=== PATIENT | female | born 1985 | race Asian ===

== ENCOUNTER → 2017-01-11 | Outpatient (CLI) | payer OTHER ==
[2017-01-11 12:53] LABS: HEMOGLOBIN 14.8 g/dL (11.7-16.4)
[2017-01-11 13:08] LABS: ASPARTATE AMINO TRANSFERASE 92 U/L (15-37); BLOOD UREA NITROGEN 9 mg/dL (7-18); C-REACTIVE PROTEIN, QUANT 0.15 mg/dL (0.02-0.49)
[2017-01-12 14:16] LABS: ANTIRIBOSOMAL P ABS <0.2 AI (0.0-0.9); CHROMATIN AB <0.2 AI (0.0-0.9); SJOGREN'S SS-A AB <0.2 AI (0.0-0.9)
== END | disposition home or self-care (01) ==
LOC: CFH 08:03
PROVIDERS: ATTEND Nurse Practitioner Family
DX: E04.9 Nontoxic goiter, unspecified (principal); K76.0 Fatty (change of) liver, not elsewhere classified; E78.1 Pure hyperglyceridemia; M54.16 Radiculopathy, lumbar region; R76.9 Abnormal immunological finding in serum, unspecified; R19.7 Diarrhea, unspecified; R79.89 Other specified abnormal findings of blood chemistry; R03.0 Elevated blood-pressure reading, without diagnosis of hypertension; R73.02 Impaired glucose tolerance (oral)
CPT/HCPCS: 36415; 80053; 80061; 81001; 82248; 82550; 83036; 83516; 84439; 84443; 84550; 85025; 85651; 85730; 86140; 86160; 86225; 86235; 87086

== ENCOUNTER → 2017-01-12 | Outpatient (CLI) | payer OTHER | END | disposition home or self-care (01) | LOC: CFH 09:38 | PROVIDERS: ATTEND Nurse Practitioner Family | DX: Z02.9 Encounter for administrative examinations, unspecified (principal) ==

== ENCOUNTER → 2017-02-22 | Outpatient (CLI) | payer OTHER ==
[2017-02-22 11:22] LABS: HIV 1&2 ANTIBODY SCREEN Nonreactive (Nonreactive); HIV-1 p24 ANTIGEN Nonreactive (Nonreactive)
== END | disposition home or self-care (01) ==
LOC: CFH 08:11
PROVIDERS: ATTEND Obstetrics & Gynecology
DX: Z20.2 Contact with and (suspected) exposure to infections with a predominantly sexual mode of transmission (principal); E28.2 Polycystic ovarian syndrome
CPT/HCPCS: 36415; 83525; 84702; 86592; 86696; 86703; 87899; G0435

== ENCOUNTER 2017-03-15 11:09 | Emergency (ER) | payer OTHER ==
[~2017-03-15] VITALS: Ht 162.6 cm; Wt 87.3 kg
[2017-03-15] MEDS ORDERED: SODIUM CHLORIDE FLUSH 10ML SYR IVF ONE (12:30)
[2017-03-15] MEDS ORDERED: ONDANSETRON 2MG/ML, 2ML IVPush ONE (12:30)
[2017-03-15] MEDS ORDERED: SODIUM CHLORIDE 0.9% 1,000ML IVBOLUS ONE ×2 (12:30→15:00)
[2017-03-15 12:49] LABS: BLOOD UREA NITROGEN 11 mg/dL (7-18)
[2017-03-15 12:56] LABS: ASPARTATE AMINO TRANSFERASE 54 U/L (15-37)
[2017-03-15] MEDS ORDERED: KETOROLAC 30 MG/1 ML ONE (14:26)
[2017-03-15] MEDS ORDERED: DIPHENHYDRAMINE 50 MG/ML, 1ML ONE (14:27)
[2017-03-15] MEDS ORDERED: METOCLOPRAMIDE 5 MG/ML, 2ML ONE (14:27)
[2017-03-15] MEDS ORDERED: KETOROLAC 30 MG/1 ML IVPush ONE (14:30)
[2017-03-15] MEDS ORDERED: DIPHENHYDRAMINE 50 MG/ML, 1ML IVPush ONE (14:30)
[2017-03-15] MEDS ORDERED: METOCLOPRAMIDE 5 MG/ML, 2ML IVPush ONE (14:30)
[2017-03-15 16:06] VITALS: BP 124/84
== END 2017-03-15 16:40 | disposition home or self-care (01) ==
LOC: ED 12:22
DX: K52.9 Noninfective gastroenteritis and colitis, unspecified (principal); G44.89 Other headache syndrome; R42 Dizziness and giddiness
CPT/HCPCS: 36415; 76700; 80053; 81003; 83690; 84703; 85025; 93005; 96361; 96374; 96375; 99285; J1200; J1885; J2765; J7030

== ENCOUNTER → 2017-04-25 | Outpatient (CLI) | payer OTHER ==
[2017-04-25 13:18] LABS: ASPARTATE AMINO TRANSFERASE 29 U/L (15-37); BLOOD UREA NITROGEN 12 mg/dL (7-18); TOTAL IRON BINDING CAPACITY 340 mcg/dL (250-450)
== END | disposition home or self-care (01) ==
LOC: CFH 09:11
PROVIDERS: ATTEND Nurse Practitioner Family
DX: E55.9 Vitamin D deficiency, unspecified (principal); R00.2 Palpitations; R79.9 Abnormal finding of blood chemistry, unspecified
CPT/HCPCS: 36415; 80053; 82306; 83540; 83550; 85025; 86141

== ENCOUNTER → 2017-04-28 | Outpatient (CLI) | payer OTHER | END | disposition home or self-care (01) | LOC: CFH 08:20 | PROVIDERS: ATTEND Nurse Practitioner Family | DX: I37.1 Nonrheumatic pulmonary valve insufficiency (principal); E01.0 Iodine-deficiency related diffuse (endemic) goiter; E06.9 Thyroiditis, unspecified; H81.03 Meniere's disease, bilateral; R51 Headache | CPT/HCPCS: 70450; 76536; 93306 ==

== ENCOUNTER → 2017-05-26 | Outpatient (CLI) | payer OTHER ==
[2017-05-26 11:49] LABS: HIV 1&2 ANTIBODY SCREEN Nonreactive (Nonreactive); HIV-1 p24 ANTIGEN Nonreactive (Nonreactive)
== END | disposition home or self-care (01) ==
LOC: LAB 11:08
PROVIDERS: ATTEND Advanced Practice Midwife
DX: Z11.3 Encounter for screening for infections with a predominantly sexual mode of transmission (principal)
CPT/HCPCS: 36415; 80074; 86592; 86695; 86696; 86703; 87899; G0435

== ENCOUNTER → 2018-10-06 | Outpatient (CLI) | payer MEDICAID | END | disposition home or self-care (01) | LOC: STAR 12:43 | PROVIDERS: ATTEND Student in an Organized Health Care Education/Training Program | DX: Z01.818 Encounter for other preprocedural examination (principal); E07.9 Disorder of thyroid, unspecified; E06.3 Autoimmune thyroiditis; I10 Essential (primary) hypertension | CPT/HCPCS: 93005 ==